=== PATIENT | female | born 1970 | race Caucasian/White ===

== ENCOUNTER → 2021-12-22 11:36 | Outpatient (CLI) | payer OTHER, MEDICAID, SELFPAY ==
[2021-12-22 12:25] LABS: COVID19 -Nasal RAPID Negative (Negative)
== END ==
PROVIDERS: PCP Family Medicine; Visit Provider Obstetrics & Gynecology
DX: Z01.812 Encounter for preprocedural laboratory examination (principal); Z20.822 Contact with and (suspected) exposure to COVID-19
CPT/HCPCS: 87635; C9803

== ENCOUNTER 2021-12-23 06:23 | Day surgery (SDC) | payer OTHER, MEDICAID, SELFPAY ==
[2021-12-20 12:58] VITALS: BMI 37.0
[2021-12-23] VITALS (8 sets, daily range): BP systolic 119–162; BP diastolic 76–113; PULSE 83–104; RESP 12–18; TEMP 36.1–36.6; O2SAT 95–97; BMI 37.0
--- NOTE | 2021-12-23 | PATH_ITS ---
[facility] Accession Number: [id number] . 01 Material submitted: . endometrium - ENDOMETRIAL CURETTINGS . 02 Diagnosis: Endometrium, Curettings: Superficial endometrial strips and separate fragments of squamous epithelium. No evidence of neoplasia or hyperplasia. MRV 12/28/2021 1320 Local . 02 Electronically signed: . Kathrin Hancock MD, Pathologist NPI- [id number] . 01 Gross description: . Received in formalin, labeled with the patient's name and endometrial curettings, are multiple Telfa pads containing 1.0 x 1.0 x 0.3 cm aggregate of multiple fragments of red-brown soft tissue and mucus. Entirely submitted. . SUMMARY OF SECTIONS: A1: Multiple pieces. (OK:[id number]) /FRR 12/24/2021 1902 Local . 02 Pathologist provided ICD-10: N95.0 . 02 CPT . 629067 Specimen Comment: A courtesy copy of this report has been sent to [phone] Performed at: 01 [facility] [address], [place], [place] [id number] MD Tony Smart MD Phone: [phone] Performed at: 02 [facility] [address] [place], [place] [id number] MD Kathrin Hancock MD Phone: [phone]
--- NOTE | 2021-12-23 07:15 | SUR.PREOP ---
12/23/21-715am- attempted iv start x 3 by 2 fellow billing and accounting staff assistant's with out sucess. refused other attempts. Anesthesia to be notified.
--- NOTE | 2021-12-23 07:21 | SUR.OPER ---
Lithotomy on padded OR bed, head on pillow, arms secured on padded arm boards at <90 degrees abduction. Legs secured in padded yellow fins stirrups.
[2021-12-23] MEDS: LACTATED RINGERS 1,000 ML 100 ML IV (07:40)
--- NOTE | 2021-12-23 07:49 | PM.PREOP ---
Pre-operative Note COVID-19 COVID-19 status: Negative Result date/Date tested (Pos, Neg/Pending): 12/22/21 Criteria for continued procedure: Non-surgical alternatives not available or appropriate per current SOC Interval Note History & Physical reviewed/Exam performed by Physician: Yes Changes to H&P: No
--- NOTE | 2021-12-23 08:22 | PM.OP.1 ---
Operative Date/Time/Diagnoses Date of procedure: 12/23/21 Time of procedure: 07:45 Pre-op diagnosis: persistent postmenopausal bleeding Post-op diagnosis: same Procedure & Clinicians Procedure: diagnostic hysteroscopy and dilation and curettage Same procedure as scheduled: Yes Indications: persistent postmenopausal bleeding Surgeon: Lexie Driscoll Anesthesia Type: MAC +/- Operative Notes Findings: Normal vulva, vagina, and cervix. Atrophic appearing endometrium without abnormalities. Specimen(s): other (endometrial curettings) Estimated Blood Loss (mL): 0 Procedure in detail: After informed consent was obtained, the patient was taken to the operating room where IV sedation was obtained. She was placed in the dorsal lithotomy position and prepped and draped in the normal sterile fashion, having emptied her bladder just prior to transfer to the OR. A speculum was inserted into the vagina and the cervix visualized. The anterior lip of the cervix was grasped with a single toothed tenaculum and hegar dilators used to dilate the cervix to 7mm with gentle pressure. The diagnostic hysteroscope was gently inserted through the cervix, and the endometrial cavity visualized. No abnormalities were noted, both ostia were visualized without difficulty, and no explanation for the patient's bleeding was seen. The hysteroscope was removed and a gentle curettage performed with removal of a scant amount of tissue. The tenaculum was removed with spontaneous hemostasis at the tenaculum sites, and the speculum removed from the vagina. The patient was transferred to the PACU in stable condition. IVF: 400ccs LR Fluid deficit: 50ccs NS EBL minimal Complications: none Post-operative Condition: stable Disposition: PACU Plan for aftercare: Home with routine precautions and follow up.
[2021-12-23] MEDS: fentaNYL 100 MCG/2 ML INJ IV ×4 (08:30→08:49)
[2021-12-23] MEDS: LORazepam 2 MG/ML INJ 0.5 MG IV ×2 (08:31→08:40)
[2021-12-23] MEDS: OXYCODONE IR 5 MG TABLET PO ×2 (08:50→09:17)
--- NOTE | 2021-12-23 09:25 | SUR.PHASEI ---
When received from OR was writhing in pain and crying from cramping. Several doses Fentanyl given and ativan, then two doses of oxycodone. Finally calmed down and relaxing better
--- NOTE | 2021-12-23 09:45 | SUR.PHASEII ---
12/23/23-46- patient referred to call md if pain not controlled with tylenol/otc medication. States can't tolerate ibuprofen due to ulcer history. pain now down to 3/10 and tolerable. voiced readiness to go home. iv out after dressed. denies nausea or any dizziness. gait steady. new pad for discharge given. no increase drainage after moving. 0974-Discharged with all paperwork,& belongings by wheelchair to mom's car/care.
== END 2021-12-23 09:50 | disposition home or self-care (01) ==
PROVIDERS: PCP Family Medicine; Referring Provider Obstetrics & Gynecology; Visit Provider Obstetrics & Gynecology
PROC: 0UDB8ZZ Extraction of Endometrium, Via Natural or Artificial Opening Endoscopic (ICD-10-PCS; CPT 58558; principal; 2021-12-23 07:45)
DX: N95.0 Postmenopausal bleeding (principal); F17.210 Nicotine dependence, cigarettes, uncomplicated; F41.9 Anxiety disorder, unspecified; F32.9 Major depressive disorder, single episode, unspecified
CPT/HCPCS: 58558; 82962; J1100; J2060; J2250; J2405; J2704; J3010